=== PATIENT | female | born 1970 | race Caucasian/White ===

== ENCOUNTER 2018-08-29 10:31 | Emergency (ER) | payer OTHER ==
[~2018-08-29] VITALS: Ht 152.4 cm; Wt 77.1 kg
[2018-08-29] MEDS ORDERED: NORVASC5 MG (10:41)
[2018-08-29] MEDS ORDERED: PNEU16DI2 (10:41)
== END 2018-08-29 12:43 | disposition home or self-care (01) ==
LOC: ER 10:31
DX: B34.9 Viral infection, unspecified (principal)

== ENCOUNTER 2018-09-14 10:13 | Outpatient (CLI) | payer OTHER ==
[~2018-09-14 10:13] MED LIST: NORVASC5 MG; PNEU16DI2
== END 2018-09-14 10:20 | disposition home or self-care (01) ==
LOC: LAB 10:13
DX: J11.1 Influenza due to unidentified influenza virus with other respiratory manifestations (principal); J20.0 Acute bronchitis due to Mycoplasma pneumoniae